=== PATIENT | male | born 1955 | race Caucasian/White ===

== ENCOUNTER → 2017-10-12 | Outpatient (CLI) | payer OTHER ==
--- NOTE | 2017-10-12 16:04 | Diagnostic Imaging Report ---
EXAMINATION: MRI of the lumbar spine without contrast HISTORY: Status post fall 2 weeks ago from a ladder, low back pain COMPARISON: Noninvasive TECHNIQUE: Sagittal T1, T2, STIR; axial T2 and proton density. FINDINGS: It is assumed that there are 5 lumbar vertebrae. Curvature/Alignment: Normal lordosis. Vertebrae: Bone marrow edema in the S3 sacral level likely related to a nondisplaced acute fracture. Chronic endplate degenerative changes at all for L5 and L5-S1. Conus: Normal, terminating at L1-L2 Cauda equina: Unremarkable. Lower thoracic: Unremarkable. Paraspinal soft tissues: Unremarkable. Degenerative changes: L1-L2: Unremarkable. L2-L3: Asymmetric to left disc bulge. Mild left foraminal stenoses. L3-L4: Asymmetric to the right disc bulge and facet arthrosis. Small central disc protrusion. Ligamenta flava thickening and bilateral facet arthrosis. Mild spinal canal and moderate bilateral foraminal stenosis L4-L5: Symmetric disc bulge, marginal endplate osteophytes on the right side. Bilateral facet hypertrophic. Moderate bilateral foraminal stenoses. L5-S1: Decreased disc height and T2 signal intensity, marginal endplate osteophytes and bilateral facet arthrosis. Moderately severe bilateral foraminal stenoses. IMPRESSION: 1. Acute nondisplaced partially visualized sacral fracture (at the level of S3). 2. Mild degenerative canal and moderate foraminal stenosis at L3-L4. 3. Moderate degenerative foraminal stenosis at L4-L5 and moderately severe at L5-S1. The findings were discussed with the attending physician's medical geneticist Savanah Elena at the time of this dictation. Signed by: Dr. Neena Wheatley M.D. on 10/12/2017 4:01 PM
== END ==
LOC: MRI 14:48
PROVIDERS: ATTEND Family Medicine
DX: S34.109D Unspecified injury to unspecified level of lumbar spinal cord, subsequent encounter (principal)
CPT/HCPCS: 72148

== ENCOUNTER → 2018-02-07 | Outpatient (CLI) | payer OTHER ==
--- NOTE | 2018-02-07 13:07 | Diagnostic Imaging Report ---
History: Fell, landed in tailbone Comparison studies: MRI of the lumbar spine 10/13/2015 Technique: Sagittal, coronal and axial T2 , sagittal T1 and IR, axial spin density oblique. Intravenous contrast: None Findings: Number of lumbar vertebral bodies:5 Alignment: Straightening of the normal lordosis. Mild grade 1 retrolisthesis of L5 over S1.No scoliosis. Soft tissues: No T2 hyperintense inflammatory changes. Subcentimeter cysts are seen in the right kidney interpolar region. Paraspinal muscles: No signal abnormalities. No atrophy. Lower thoracic cord:Normal in signal and morphology. The tip of the conus is at L1-L2. Cauda equina: No masses. No arachnoiditis. Vertebrae: Normal in height and signal intensity. Resolved sacral edema. No acute compression fractures, infection or neoplasm. Degenerative changes: L1-L2: No abnormalities. L2-L3: No abnormalities. L3-L4: Disc degeneration with loss of T2 signal. Diffuse disc bulge with superimposed central disc protrusion results in moderate canal stenosis and narrowing of the bilateral subarticular recesses more prominent on the right. Moderate bilateral foraminal narrowing. L4-L5: Disc degeneration with loss of T2 signal. Mild diffuse disc bulge and mild facet hypertrophy with patent canal and moderate bilateral foraminal narrowing. L5-S1: Disc degeneration with decreased intervertebral space and loss of T2 signal. Grade 1 mild retrolistheses. Patent canal and moderate to severe bilateral foraminal narrowing. Additional findings: None IMPRESSION: No acute abnormality. Healing sacral fracture with resolved edema. Moderate canal stenosis and narrowing of the bilateral subarticular recesses and L3-L4 secondary to diffuse disc bulge and central disc protrusion, mildly progressed from previous exam. Moderate to severe bilateral foraminal narrowing at L5-S1 secondary to mild grade 1 retrolistheses, stable. Other stable degenerative changes as described above. Signed by: DR Juvenal Clark M.D. on 02/07/2018 1:04 PM
== END ==
LOC: MRI 07:38
PROVIDERS: ATTEND Family Medicine
DX: S34.109D Unspecified injury to unspecified level of lumbar spinal cord, subsequent encounter (principal)
CPT/HCPCS: 72148

== ENCOUNTER → 2021-08-24 | Outpatient (CLI) | payer OTHER | LOC: CT 15:49 | PROVIDERS: ATTEND Family Medicine | DX: R07.89 Other chest pain (principal); T50.B95A Adverse effect of other viral vaccines, initial encounter | CPT/HCPCS: 71250 ==

== ENCOUNTER → 2021-10-04 | Outpatient (CLI) | payer OTHER ==
[~2021-10-04] MED LIST: IOPAMIDOL 370 MG/ML 100 ML INFUS..BTL INJ ONE; NITROGLYCERIN 0.4 MG SUBL ONE; SODIUM CHLORIDE 0.9% 100 ML ONE
[2021-10-04 09:13] LABS: CREATININE, SERUM 0.89 mg/dL (0.72-1.25)
== END ==
LOC: CT 08:18
PROVIDERS: ATTEND Family Medicine
DX: I25.9 Chronic ischemic heart disease, unspecified (principal)
CPT/HCPCS: 36415; 75574; 82565; 84520; J7050; Q9967

== ENCOUNTER → 2022-02-01 | Outpatient (CLI) | payer OTHER | LOC: US 07:35 | PROVIDERS: ATTEND Family Medicine | DX: K40.90 Unilateral inguinal hernia, without obstruction or gangrene, not specified as recurrent (principal) | CPT/HCPCS: 76882 ==

== ENCOUNTER → 2022-04-13 | Day surgery (SDC) | payer OTHER ==
[2022-04-10 12:50] LABS: BASOPHILS # (AUTO) 0.1 (0.0-0.1); BASOPHILS % 1.6 % (0.0-1.0); EOSINOPHILS # (AUTO) 0.3 (0.0-0.4); EOSINOPHILS % 5.6 % (0.0-6.0); HEMOGLOBIN 12.4 g/dL (14.0-18.0); LYMPHOCYTES # (AUTO) 1.8 (1.0-3.2); LYMPHOCYTES % 35.3 % (18.0-39.1); MEAN CORPUSCULAR HEMOGLOBIN 30.1 pg (28-32); MEAN CORPUSCULAR VOLUME 97.1 fL (81-99); MONOCYTES # (AUTO) 0.5 (0.2-0.8); MONOCYTES % 9.6 % (4.4-11.3); NEUTROPHILS # (AUTO) 2.4 (2.1-6.9); NEUTROPHILS % 47.7 % (38.7-80.0); PLATELET COUNT 234 x10e3/uL (140-360); RED BLOOD COUNT 4.12 x10e6/uL (4.3-5.7); RED CELL DISTRIBUTION WIDTH 12.3 % (11.7-14.4)
[2022-04-10 13:22] LABS: ANION GAP 15.7 mmol/L (8-16); CALCIUM 9.3 mg/dL (8.4-10.2); CREATININE, SERUM 0.89 mg/dL (0.72-1.25); POTASSIUM 4.7 mmol/L (3.5-5.1)
[~2022-04-13] MED LIST changes: +BUPIVACAINE 0.25% 30ML SDV ONE; +EPHEDRINE SULFATE INJ 50 MG/ML VIAL ONE; +FENTANYL CITRATE/PF 100MCG/2 ML INJ ONE; -IOPAMIDOL 370 MG/ML 100 ML INFUS..BTL INJ ONE; +LIDOCAINE HCL/EPINEPHRINE/PF 10 ML VIAL ONE; -NITROGLYCERIN 0.4 MG SUBL ONE; +POVIDONE IODINE 0.05% 0.05 % ML PO ONE; +PROPOFOL IV EMULSION 10 MG/ML 20 ML VIAL ONE; +SEVOFLURANE INHAL SOLN 250 ML PEN BTL ONE; -SODIUM CHLORIDE 0.9% 100 ML ONE; +VITAMIN C 250250 MG
[2022-04-13 13:30] VITALS: BP 122/66
== END | disposition home or self-care (01) ==
LOC: OR 09:36
PROVIDERS: ATTEND Surgery
DX: K40.90 Unilateral inguinal hernia, without obstruction or gangrene, not specified as recurrent (principal); Z01.810 Encounter for preprocedural cardiovascular examination; Z01.812 Encounter for preprocedural laboratory examination; Z01.818 Encounter for other preprocedural examination
CPT/HCPCS: 36415; 49505; 71046; 80048; 85025; 93005; C1781; J2704; J3010